=== PATIENT | female | born 1965 | race Caucasian/White ===

== ENCOUNTER 2016-07-21 08:48 | Inpatient (IN) | payer OTHER ==
[~2016-07-21] VITALS: Ht 165.1 cm; Wt 91.4 kg
[2016-07-21 08:51] VITALS: BP 132/76
--- NOTE | 2016-07-21 08:54 | NUR ---
PT BIBA TO ER BED 01.
[2016-07-21] MEDS ORDERED: ASPIRIN 81 MG TAB.CHEW PO ONE (08:55)
--- NOTE | 2016-07-21 09:02 | NUR ---
50 YO FEMALE BIB EMS FROM FIELD FOR SUDDEN ONSET OF SVT, GIVEN ADENOSINE AND CARDIO VERTED IN THE FIELD. MINIMAL RESPONSE TO PAINFUL STIMULI. AT BEDSIDE. PLACED ON MONITOR, DR PENNY AT BEDSIDE
[2016-07-21 09:23] LABS: BASOPHILS # (AUTO) 0.2 K/uL (0.00-0.22); BASOPHILS % (AUTO) 4.1 % (0.0-2.0); EOSINOPHILS # (AUTO) 0.1 K/uL (0-0.4); EOSINOPHILS % (AUTO) 2.6 % (0.0-4.0); HEMATOCRIT 44.2 % (36-48); HEMOGLOBIN 14.3 g/dL (12.0-16.0); LYMPHOCYTES # (AUTO) 1.1 K/uL (2.5-16.5); LYMPHOCYTES % (AUTO) 22.3 % (20.5-51.1); MEAN CORPUSCULAR HEMOGLOBIN 30 pg (27-31); MEAN CORPUSCULAR HGB CONC 32 g/dL (33-37); MEAN CORPUSCULAR VOLUME 91 fL (80-94); MONOCYTES # (AUTO) 0.3 K/uL (0.8-1.0); MONOCYTES % (AUTO) 6.4 % (1.7-9.3); NEUTROPHILS # (AUTO) 3.3 K/uL (1.8-7.7); NEUTROPHILS % (AUTO) 64.6 % (42.2-75.2); PLATELET COUNT (AUTO) 224 K/uL (140-450); RED BLOOD CELL COUNT(AUTO) 4.84 MIL/uL (4.20-5.40); RED CELL DISTRIBUTION WIDTH 12.9 % (11.6-13.7)
[2016-07-21 09:48] LABS: FREE T4 (FREE THYROXINE) 1.05 ng/dL (0.76-1.46); THYROID STIMULATING HORMONE 1.41 uIU/mL (0.34-3.76)
[2016-07-21 09:49] LABS: ALBUMIN 3.2 g/dL (3.4-5.0); ANION GAP 10.4 (8-16); CALCIUM 7.6 mg/dL (8.5-10.1); CARBON DIOXIDE 24.7 mmol/L (21-32); PARTIAL THROMBOPLASTIN TIME 26.3 secs (22-35.6); POTASSIUM 4.1 mmol/L (3.5-5.1); PROTHROMBIN TIME 9.8 secs (10.8-13.4); TOTAL BILIRUBIN 0.4 mg/dL (0.0-1.0); TOTAL PROTEIN, SERUM 6.4 g/dL (6.4-8.2)
--- NOTE | 2016-07-21 11:30 | NUR ---
Patient will be admitted to care of DR GARCIA. Admited to ICU. Will go to room CIU2. Belongings list completed. Report to LANI CHEN.
--- NOTE | 2016-07-21 12:56 | NUR ---
ADMITTED PT FROM ED BY JU TO ICU BED TWO. PT AWAKE, ALERT, AND ORIENT. ATTACHED PT TO BEDSIDE MONITOR SHOWS SR . PT ON O2 NC 2L/MIN. LUNG SOUNDS CLEAR, NO S/S OF RESPIRATORY DISTRESS NOTED. ABDOMEN SOFT, NON TENDER WITH ACTIVE BOWEL SOUNDS. SKIN INTACT WARM AND DRY.PT ABLE TO MOVE ALL HER EXTREMITIES. MILD WEAKNESS. HOB AT 30 DEGREES WITH LOW BED POSITION. DENIES PAIN AT THIS TIME. CALL LIGHT IN REACH, WILL CONTINUE TO MONITOR.
[2016-07-21] MEDS ORDERED: ONDANSETRON 4 MG/2 ML VIAL IVP PRN (13:55)
[2016-07-21] MEDS ORDERED: HYDROcodone/APAP 5/325 MG 1 TAB TAB PO PRN (13:55)
[2016-07-21] MEDS ORDERED: MORPHINE SULFATE 2 MG/ML SYR IVP PRN (13:55)
[2016-07-21] MEDS ORDERED: LORazepam 2 MG/ML VIAL IVP PRN (13:55)
[2016-07-21] MEDS ORDERED: ALPR0.253 PO (14:44)
[2016-07-21] MEDS ORDERED: [UNRECOGNIZED DRUG - CODE] PO (14:44)
[2016-07-21] MEDS: NACL 0.9% 1,000 ML IV SCH (14:44)
[2016-07-21] MEDS ORDERED: BACL20TA4 PO (14:44)
[2016-07-21] MEDS ORDERED: ASPI-1227 PO (14:44)
[2016-07-21 15:01] LABS: AMPHETAMINE, URINE NEG. ng/ml (NEG <=1000); BARBITURATE, URINE NEG. ng/ml (NEG <=200); BENZODIAZEPINE, URINE NEG. ng/mL (NEG <=200); CANNABINOID, URINE NEG. ng/mL (NEG <=50); COCAINE, URINE NEG. ng/mL (NEG <=300); OPIATE, URINE NEG. ng/mL (NEG <=2000); PHENCYCLIDINE SCREEN,URINE NEG. ng/mL (NEG <=25)
[2016-07-21 16:00] VITALS: BP 131/69
--- NOTE | 2016-07-21 16:10 | NUR ---
PT SLEEPING IN BED BUT EASILY AWAKING WITH ASSESSMENT. PT STATES SHE FEELS SLEEPY.
--- NOTE | 2016-07-21 17:30 | NUR ---
FAMILY AT BED SIDE. PT CHATTING WITH FAMILY. DINNER TRAY SERVED.
--- NOTE | 2016-07-21 18:10 | NUR ---
REPORT GIVEN TO KEVIN GIBSON AT THIS TIME. Addendum: 07/21/16 at 2002 by Danny Frausto RN [id number] INSTEAD OF [id number]
--- NOTE | 2016-07-21 18:36 | NUR ---
DR. CANDELARIA. Y COMMERCIAL OCEAN CLAMMER AT BEDSIDE TO ASSESS PT. WILL FOLLOW UP.
--- NOTE | 2016-07-21 19:15 | NUR ---
RECEIVED REPORT FROM LANI CHEN AT BEDSIDE, PT IS AAOX4, ABLE TO FOLLOW COMMANDS AND MAKE NEEDS KNOWN. DENIES CHEST PAIN, SOB/DISTRESS. ON O2 AT 2L/MIN VIA NC, BREATHING EVEN AND UNLABORED, CLEAR LUNG SOUNDS. SR ON MEDICAL ENGINEER. SOFT ABD, BOWEL SOUNDS PRESENT. AFEBRILE, SKIN IS WARM AND DRY TO TOUCH, IV SITE ON LEFT AC 20GA RUNNING NS AT 75ML/HR. ABLE TO MOVE ALL EXTREMITIES. VSS. WILL CONTINUE TO MONITOR.
[2016-07-21 20:00] VITALS: BP 135/71
[2016-07-21 20:26] LABS: CREATINE KINASE MB 1.1 ng/mL (0-3.6)
--- NOTE | 2016-07-21 20:28 | NUR ---
RECEIVED CRITICAL LAB REPORT FROM LAB: [facility] [id number]. NICKOLAS SIMMS MADE AWARE, NO NEW ORDER AT THIS TIME.
--- NOTE | 2016-07-21 21:00 | NUR ---
SCHEDULED MEDICATION GIVEN ORDERED, PT TOLERATED WELL. PT STATED STILL FEELING CHEST PRESSURE, BUT TOLERABLE AT THIS TIME. FAMILY MEMBERS AT BEDSIDE.
[2016-07-21] MEDS: METOPROLOL 25 MG TAB PO SCH (21:14)
[2016-07-21 21:20] VITALS: BP 135/71
[2016-07-21 22:00] VITALS: BP 126/58
[2016-07-21] MEDS: ACETAMINOPHEN 325 MG TAB PO PRN (22:29)
--- NOTE | 2016-07-21 22:30 | NUR ---
PT C/O HEADACHE 12/11, MEDICATED AND EDUCATED, WILL CONTINUE TO MONITOR.
[2016-07-22] VITALS (8 sets, daily range): BP systolic 105–138; BP diastolic 57–78
--- NOTE | 2016-07-22 | NUR ---
PT IS ASLEEP, NO CHANGE OF CONDITION AT THIS TIME.
[2016-07-22] MEDS: NACL 0.9% 1,000 ML IV SCH (03:02)
--- NOTE | 2016-07-22 04:00 | NUR ---
PT IS ASLEEP IN BED COMFORTABLY AT THIS TIME.
[2016-07-22 05:06] LABS: BASOPHILS # (AUTO) 0.1 K/uL (0.00-0.22); BASOPHILS % (AUTO) 2.8 % (0.0-2.0); EOSINOPHILS # (AUTO) 0.2 K/uL (0-0.4); EOSINOPHILS % (AUTO) 3.6 % (0.0-4.0); HEMATOCRIT 42.9 % (36-48); HEMOGLOBIN 14.4 g/dL (12.0-16.0); LYMPHOCYTES # (AUTO) 1.7 K/uL (2.5-16.5); LYMPHOCYTES % (AUTO) 32.4 % (20.5-51.1); MEAN CORPUSCULAR HEMOGLOBIN 30 pg (27-31); MEAN CORPUSCULAR HGB CONC 33 g/dL (33-37); MEAN CORPUSCULAR VOLUME 90 fL (80-94); MONOCYTES # (AUTO) 0.4 K/uL (0.8-1.0); MONOCYTES % (AUTO) 7.9 % (1.7-9.3); NEUTROPHILS # (AUTO) 2.8 K/uL (1.8-7.7); NEUTROPHILS % (AUTO) 53.3 % (42.2-75.2); PLATELET COUNT (AUTO) 229 K/uL (140-450); RED BLOOD CELL COUNT(AUTO) 4.75 MIL/uL (4.20-5.40); RED CELL DISTRIBUTION WIDTH 12.8 % (11.6-13.7); WHITE BLOOD COUNT (AUTO) 5.2 K/uL (4.8-10.8)
[2016-07-22 05:42] LABS: ANION GAP 11.8 (8-16); CALCIUM 7.7 mg/dL (8.5-10.1); CARBON DIOXIDE 22.6 mmol/L (21-32); CREATININE 0.7 mg/dL (0.6-1.3); MAGNESIUM 1.9 mg/dL (1.8-2.4); POTASSIUM 4.4 mmol/L (3.5-5.1); TOTAL BILIRUBIN 0.3 mg/dL (0.0-1.0); TOTAL PROTEIN, SERUM 6.1 g/dL (6.4-8.2)
[2016-07-22 05:53] LABS: CREATINE KINASE MB 0.8 ng/mL (0-3.6)
--- NOTE | 2016-07-22 06:00 | NUR ---
NO CHANGE OF CONDITION AT THIS TIME, VSS.
--- NOTE | 2016-07-22 07:24 | NUR ---
REPORT GIVEN TO LANI CAZARES FOR CONTINUE OF CARE.
--- NOTE | 2016-07-22 07:30 | NUR ---
RECEIVE REPORT FROM KEVIN GARIBAY. SHEIS SLEEPING AT THE TIME . AWAKE BY NAME CALL. HER SKIN DRY WARM TO TOUCH AND INTACT. ON O2 AT 2L/NC IV ON LT AC # 20 INFUSING NS AT 75 ML/HR THE SITE IS DRY AND CLEAN. SHE OUT OB BED TO BED SIDE COMMODE.
--- NOTE | 2016-07-22 07:30 | NUR ---
RECEIVE REPORT FROM KEVIN GARIBAY PT, HAS ETT ORAL INTUBATED CONNECTED TO VENT SETTING AC 16 VT 550 FIO2 40% O2 SAT 99% SKIN DRY AND WARM TO TOUCH . IV FLUID HAS #20 LEFT AC INFUSING NS AT 75 ML/HR THE SITE DRY AND INTACT, SHE ABLE OOB TO BED SIDE COMMODE,
--- NOTE | 2016-07-22 07:47 | NUR ---
PATIENT HAS BEEN SCREENED AND CATEGORIZED MODERATE NUTRITION RISK. PATIENT WILL BE SEEN WITHIN 3-5 DAYS OF ADMISSION. 07/24/16-07/26/[address]
[2016-07-22 08:18] LABS: PROLACTIN 16.5 ng/mL (4.8-23.3)
--- NOTE | 2016-07-22 08:30 | NUR ---
OOB BEDSIDE COMMODE VOIDE CLEAE YELLOW URINE.
[2016-07-22] MEDS ORDERED: ASPIRIN 325 MG TAB PO SCH (09:00)
[2016-07-22] MEDS ORDERED: PROPRANOLOL 20 MG TAB PO SCH (09:00)
[2016-07-22] MEDS ORDERED: DILTIAZEM 120 MG CAPER PO SCH (09:00)
[2016-07-22] MEDS ORDERED: ENOXAPARIN 40 MG/0.4 ML SYR SUBQ SCH (09:00)
[2016-07-22] MEDS: METOPROLOL 25 MG TAB PO SCH (09:09)
[2016-07-22] MEDS ORDERED: ALPRAZolam 0.25 MG TAB PO PRN (09:10)
--- NOTE | 2016-07-22 09:16 | NUR ---
SEEN BY DR. CARVALHO ORDER RECEIVED D/C HOME WHEN FAMILY TO TREASURY SPECIALIST TO DAY.
[2016-07-22] MEDS ORDERED: METO25TA PO (09:17)
--- NOTE | 2016-07-22 12:00 | NUR ---
SIT AT BEDSIDE LUNCH TOOK ABOUT 80%.
[2016-07-22] MEDS: ACETAMINOPHEN 325 MG TAB PO PRN (14:07)
--- NOTE | 2016-07-22 14:07 | NUR ---
FAXED INITIAL REVIEW TO [facility] [phone] PHONE [place] [phone]
--- NOTE | 2016-07-22 14:09 | NUR ---
C/O HEADACHE 10/11 MEDICATION GIVEN ORDER.
--- NOTE | 2016-07-22 16:20 | NUR ---
AWAKE C/O HEADACHE 11/10 DR. CARVALHO NOTIFY, ORDER RECEIVED. MEDICATION GIVE TO PATIENT ORDERED
[2016-07-22] MEDS ORDERED: IBUPROFEN 400 MG TAB PO SCH (16:30)
[2016-07-23] MEDS ORDERED: BACLOFEN 20 MG PO SCH (09:00)
[2016-07-23] MEDS ORDERED: DILTIAZEM 120 MG CAPER PO SCH (09:00)
[2016-07-23] MEDS ORDERED: BACLOFEN 10 MG TAB PO SCH (09:00)
[2016-07-23] MEDS ORDERED: ASPIRIN PO SCH (09:00)
[2016-07-23] MEDS ORDERED: MAG PO SCH (09:00)
[2016-07-23] MEDS ORDERED: CALCIUM CARBONATE PO SCH (09:00)
== END 2016-07-22 18:00 | disposition home or self-care (01) | DRG 201 ==
LOC: MED 08:48 → MIC 11:29
PROVIDERS: ADMIT Hospitalist; ATTEND Hospitalist
DX: I47.1 Supraventricular tachycardia (principal); M19.90 Unspecified osteoarthritis, unspecified site; R74.8 Abnormal levels of other serum enzymes
CPT/HCPCS: 36415; 70450; 71010; 80053; 80305; 82140; 82550; 82553; 83735; 83880; 84146; 84439; 84443; 84479; 84484; 85025; 85610; 85730; 87081; 93005; 99291; J1650; J7030; Q0092